=== PATIENT | female | born 1995 | race Caucasian/White ===

== ENCOUNTER 2019-10-02 09:24 | Emergency (ER) | payer BC ==
--- NOTE | 2019-10-02 09:34 | UC ---
Abdominal Pain Female HPI - HPI Summary HPI Summary: Mid abdominal pain started last night. Now right lower quadrant pain. Hurts to bend or move. Nausea with 5 episodes of vomiting. - History of Current Complaint Stated Complaint: SEVERE ADOMINAL PAIN Time Seen by Provider: 10/02/19 09:33 Hx Obtained From: Patient ?: No Onset/Duration: Sudden Onset, Lasting Hours Timing: Constant Severity Initially: Severe Severity Currently: Severe Location: Discrete At: RLQ Character: Aching Aggravating Factor(s): Movement Associated Signs and Symptoms: Positive: Nausea, Vomiting Allergies/Adverse Reactions: Allergies Allergy/AdvReac Type Severity Reaction Status Date / Time oxybutynin [From Ditropan] Allergy Hives Verified 10/02/19 09:39 Home Medications: Home Medications Acetaminophen [Tylenol Extra Strength] 500 mg PO ONCE 10/02/19 [History Confirmed 10/02/19] PMH/Surg Hx/FS Hx/Imm Hx Previously Healthy: Yes - Family History Known Family History: Negative: Hypertension Review of Systems All Other Systems Reviewed And Are Negative: Yes Constitutional: Positive: Fever Gastrointestinal: Positive: Vomiting, Diarrhea Is Patient Immunocompromised?: No Physical Exam Triage Information Reviewed: Yes Appearance: Well-Nourished, Ill-Appearing, Pain Distress Vital Signs Reviewed: Yes ENT Exam: Normal Dental Exam: Normal Neck exam: Normal Respiratory Exam: Normal Respiratory: Positive: Chest non-tender, Lungs clear, Normal breath sounds Cardiovascular Exam: Normal Cardiovascular: Positive: RRR, No Murmur, Pulses Normal Abdomen Description: Positive: Peritoneal Signs, Other: - epigstric and RLQ tenderness Bowel Sounds: Positive: Present Musculoskeletal Exam: Normal Neurological Exam: Normal Psychological Exam: Normal Skin Exam: Normal Abd Pain Female Course/Dx - Course Course Of Treatment: hx obtained, exam performed ,meds reviewed, patient sent to [facility] for higher level of care, talked to Luz Soares in ER - Differential Dx/Diagnosis Differential Diagnosis: Appendicitis Provider Diagnosis: RLQ abdominal pain Discharge ED - Sign-Out/Discharge Documenting (check all that apply): Patient Departure All imaging exams completed and their final reports reviewed: No Studies - Discharge Plan Condition: Stable Disposition: HOME Patient Education Materials: Acute Abdominal Pain (ED) Referrals: No Primary Care Phys,NOPCP [Primary Care Provider] - Additional Instructions: 1. follow up with [facility] now. - Billing Disposition and Condition Condition: STABLE Disposition: Home
--- OUTSIDE RECORDS SUMMARY | 2019-10-02 09:38 | XMS REPORT | Continuity of Care Document ---
:1995 External Reference #:[id number] Author Name Sonya العراقي FNP (transmitted by agent of provider Trudy Zepeda) Address [address] [place] [id number] Care Team Providers Name Role Phone Sonya العراقي FNP - Family Care Team Information Purchasing Administrative Assistant [phone] Problems Description No Information Available Social History Type Date Description Comments Sex Unknown Tobacco Use Start: Unknown Never Smoked Cigarettes ETOH Use Denies alcohol use Tobacco Use Start: Unknown Patient denies history of smoking Recreational Drug Use Denies Drug Use Smoking Status Reviewed: 06/15/19 Patient denies history of smoking Allergies, Adverse Reactions, Alerts Active Allergies Reaction Severity Comments Date Ditropan 05/05/2019 Medications Active Medications SIG Qnty Indications Ordering Provider Date Clindamycin Phosphate apply to affected 60gm Sonya العراقي FNP 1% area twice daily Gel for hs Adapalene-Benzoyl Apply Nightly To Unknown Peroxide ALL Of The Acne 0.1-2.5% Gel Prone Skin Or Use 1-2 Times Daily as Needed For Acne Flares Mirena (52 MG) Unknown 20mcg/24HR IUD Elder Nu Hormone otc Unknown Supplement Multivitamin Adult otc Unknown Tablets Immunizations CPT Code Status Date Vaccine Lot # [id number] Given 06/15/2019 Influenza Virus Vaccine, Quadrivalent, 36 Mos+, [id number] .[id number] U-Flu Given 09/15/2018 Influenza,Unspecified U-Flu Given 05/30/2016 Influenza,Unspecified U-Flu Given 07/04/2014 Influenza,Unspecified U-Flu Given 06/16/2013 Influenza,Unspecified U-Menin Given 01/27/2013 Meningococcal,Unspecified U-Flu Given 07/20/2012 Influenza,Unspecified U-Flu Given 06/25/2012 Influenza,Unspecified U-Flu Given 07/31/2010 Influenza,Unspecified U-HepA Given 03/27/2010 Hepatitis A,Unspecified U-Flu Given 08/17/2009 Influenza,Unspecified U-Flu Given 06/22/2009 Influenza,Unspecified U-HepA Given 12/29/2008 Hepatitis A,Unspecified U-Flu Given 2008 Influenza,Unspecified U-Menin Given 06/30/2008 Meningococcal,Unspecified U-HPV Given 10/06/2007 HPV,Unspecified U-HPV Given 06/01/2007 HPV,Unspecified [id number] Given 03/31/2007 Zoster Vaccine Live Injection U-HPV Given 03/31/2007 HPV,Unspecified U-Td Given 03/31/2007 Td(Adult),Unspecified U-Polio Given 02/07/2000 Polio,Unspecified U-DTaP Given 02/07/2000 DTaP,Unspecified 21789 Given 02/07/2000 MMR Vaccine, Live, For Subcutaneous Use U-DTaP Given 02/21/1997 DTaP,Unspecified 19106 Given 02/11/1997 Zoster Vaccine Live Injection U-Polio Given 10/28/1996 Polio,Unspecified U-HIB Given 10/28/1996 Hib,Unspecified 81515 Given 10/28/1996 MMR Vaccine, Live, For Subcutaneous Use U-DTaP Given 01/19/1996 DTaP,Unspecified U-HepB Given 01/19/1996 Hepatitis B,Unspecified U-HIB Given 01/19/1996 Hib,Unspecified U-Polio Given 1995 Polio,Unspecified U-HIB Given 1995 Hib,Unspecified U-HepB Given 1995 Hepatitis B,Unspecified U-DTaP Given 1995 DTaP,Unspecified U-Polio Given 1995 Polio,Unspecified U-HIB Given 1995 Hib,Unspecified U-HepB Given 1995 Hepatitis B,Unspecified U-DTaP Given 1995 DTaP,Unspecified Vital Signs Date Vital Result Comment 06/15/2019 4:17pm BP Systolic 112 mmHg BP Diastolic 68 mmHg Body Temperature 98.8 F Heart Rate 75 /min Respiratory Rate 16 /min Height 64.15 inches 5'4.15" Weight 129.00 lb BMI (Body Mass Index) 22.0 kg/m2 BSA (Body Surface Area) 1.63 m2 [place] body weight in kilograms 55 kg O2 % BldC Oximetry 100 % 05/05/2019 3:58pm BP Systolic 118 mmHg BP Diastolic 72 mmHg Body Temperature 99.5 F Heart Rate 77 /min Respiratory Rate 16 /min Height 64.15 inches 5'4.15" Weight 133.00 lb BMI (Body Mass Index) 22.7 kg/m2 BSA (Body Surface Area) 1.65 m2 [place] body weight in kilograms 55 kg O2 % BldC Oximetry 98 % Results Test Acquired Date Facility Test Result H/L Range Note Pap Smear Ig RFX 06/15/2019 [facility] See Comment: 1 Aptima HPV Ascu [address] [address] [phone] [facility] See Comment: 2 [email or web address] See Comment: 3 Perfor See Comment: 4 Comm . Note See Comment: 5 Iglbp See Comment: 6 Reflex See Comment: 7 Laboratory test 06/15/2019 [facility] PDF [id number] SEE IMAGE finding [address] [facility] [address] [place] [address] [phone] Urine Dipstick 05/05/2019 [facility] Ua Color yellow Yellow Ua Clarity clear Clear Ua Leuko neg Negative Ua Nitrite neg Negative Ua Urobilinogen 3.5 High 0.2 - 1.0 E.U./dL Ua Protein neg Negative Ua PH 6.5 6.5-7.5 Ua Blood neg Negative Ua Specific [place] 1.010 1.010-1.030 Ua Ketones neg Negative Ua Bilirubin neg Negative Ua Glucose neg Negative Chlam/GC/Trichomonas 05/05/[address] [facility] [address] Ur Trichomonas NEGATIVE Negative 8 PCR, Ur [address] vaginalis,PCR [place], [place] [id number] [phone] Ur Chlamydia trachomatis,PCR NEGATIVE Negative Ur Neisseria gonorrhoeae,PCR NEGATIVE Negative 9 1 NEGATIVE FOR INTRAEPITHELIAL LESION OR MALIGNANCY. 2 Satisfactory for evaluation. Endocervical and/or squamous metaplastic cells (endocervical component) are present. 3 Z01.419 4 Eula Vaz, Internal Controls Specialist (ASCP) 5 The Pap smear is a screening test designed to aid in the detection of premalignant and malignant conditions of the uterine cervix. It is not a diagnostic procedure and should not be used as the sole means of detecting cervical cancer. Both false-positive and false-negative reports do occur. 6 This liquid based ThinPrep(R) pap test was screened with the use of an image guided system. 7 The HPV DNA reflex criteria were not met with this specimen result therefore, no HPV testing was performed. 8 Z11.3 9 A negative result for either C. trachomatis and/or N. gonorrhoeae does not preclued an infection because results are dependent on adequate specimen collection, absence of inhibitors, and sufficient DNA to be detected. 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 (general) (routine) w/o abn findings Z23 Encounter for immunization Office Visit 05/05/2019 4:00p Family Medicine Sonya العراقي, L73.[address] ROSE GRADER suppurativa L70.0 Acne vulgaris R82.998 Other abnormal findings in urine Z11.3 Encntr screen for infections w sexl mode of transmiss Assessments Date Code Description Provider 06/15/2019 Z01.419 Encounter for gynecological examination Sonya العراقي FNP (general) (routine) without abnormal findings 06/15/2019 Z23 Encounter for immunization Sonya العراقي FNP 05/05/2019 L73.2 Hidradenitis suppurativa Sonya العراقي FNP 05/05/2019 L70.0 Acne vulgaris Sonya العراقي FNP 05/05/2019 R82.998 Other abnormal findings in urine Sonya العراقي FNP 05/05/2019 Z11.3 Encounter for screening for infections with a Sonya العراقي FNP predominantly sexual mode of transmission Plan of Treatment No Information Available Functional Status Description No Information Available Mental Status Description No Information Available Referrals Description No Information Available
--- OUTSIDE RECORDS SUMMARY | 2019-10-02 09:38 | XMS REPORT | Continuity of Care Document ---
:1995 External Reference #:[id number] Author Name Sonya العراقي FNP (transmitted by agent of provider Trudy Zepeda) Address [address] [place] [id number] Care Team Providers Name Role Phone Sonya العراقي FNP - Family Care Team Information Dip Lube Operator [phone] Problems Description No Information Available Social History [...] CPT Code Status Date Vaccine Lot # [id number] Given 06/15/2019 Influenza Virus Vaccine, Quadrivalent, 36 Mos+, [id number] .[id number] U-Flu Given 09/15/2018 Influenza,Unspecified U-Flu Given [...] Given 10/06/2007 HPV,Unspecified U-HPV Given 06/01/2007 HPV,Unspecified 59474 Given 03/31/2007 Zoster Vaccine Live Injection U-HPV Given 03/31/2007 HPV,Unspecified U-Td Given 03/31/2007 Td(Adult),Unspecified U-Polio Given 02/07/2000 Polio,Unspecified U-DTaP Given 02/07/2000 DTaP,Unspecified 48179 Given 02/07/2000 MMR Vaccine, Live, For Subcutaneous Use U-DTaP Given 02/21/1997 DTaP,Unspecified 30645 Given 02/11/1997 Zoster Vaccine Live Injection U-Polio Given 10/28/1996 Polio,Unspecified U-HIB Given 10/28/1996 Hib,Unspecified 62778 Given 10/28/1996 MMR Vaccine, Live, For Subcutaneous [...] kg/m2 BSA (Body Surface Area) 1.63 m2 [place] body weight in kilograms 55 kg O2 % BldC Oximetry 100 % 05/05/2019 3:58pm BP Systolic 118 mmHg BP Diastolic 72 mmHg Body Temperature 99.5 F Heart Rate 77 /min Respiratory Rate 16 /min Height 64.15 inches 5'4.15" Weight 133.00 lb BMI (Body Mass Index) 22.7 kg/m2 BSA (Body Surface Area) 1.65 m2 [place] body weight in kilograms 55 kg O2 % BldC Oximetry 98 % Results Test Acquired Date Facility Test Result H/L Range Note Pap Smear Ig RFX 06/15/2019 [facility] See Comment: 1 Aptima HPV Ascu [address] [address] [phone] [facility] See Comment: 2 [email or web address] See Comment: 3 Perfor See Comment: 4 Comm . Note See Comment: 5 Iglbp See Comment: 6 Reflex See Comment: 7 Laboratory test 06/15/2019 [facility] PDF [id number] SEE IMAGE finding [address] [facility] [address] [place] [address] [phone] Urine Dipstick 05/05/2019 [facility] Ua Color yellow Yellow Ua Clarity clear Clear Ua Leuko neg Negative Ua Nitrite neg Negative Ua Urobilinogen 3.5 High 0.2 - 1.0 E.U./dL Ua Protein neg Negative Ua PH 6.5 6.5-7.5 Ua Blood neg Negative Ua Specific [place] 1.010 1.010-1.030 Ua Ketones neg Negative Ua Bilirubin neg Negative Ua Glucose neg Negative Chlam/GC/Trichomonas 05/05/[address] [facility] [address] Ur Trichomonas NEGATIVE Negative 8 PCR, Ur [address] vaginal[address],PCR [place], [place] [address] [phone] Ur Chlamydia trachomatis,PCR NEGATIVE Negative Ur Neisseria gonorrhoeae,PCR NEGATIVE Negative 9 1 NEGATIVE FOR INTRAEPITHELIAL LESION OR MALIGNANCY. 2 Satisfactory for evaluation. Endocervical and/or squamous metaplastic cells (endocervical component) are present. 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
[2019-10-02 09:40] VITALS: BP 107/73
== END 2019-10-02 09:46 | disposition home or self-care (01) ==
LOC: UCCORT 09:24
DX: R10.31 Right lower quadrant pain (principal); R50.9 Fever, unspecified; R11.10 Vomiting, unspecified; R19.7 Diarrhea, unspecified; Z88.8 Allergy status to other drugs, medicaments and biological substances
CPT/HCPCS: 99202; G0463